=== PATIENT | male | born 1990 | race Caucasian/White ===

== ENCOUNTER 2020-12-10 09:11 | Outpatient (REF) | payer OTHER, SELFPAY ==
[2020-12-10 11:42] LABS: Alanine Aminotransferase 45 U/L (0-40); Albumin Level 4.5 g/dL (3.5-5.0); Alkaline Phosphatase 68 U/L (39-117); Anion Gap 10 (12-20); Aspartate Amino Transferase 24 U/L (5-37); Bilirubin Total 0.5 mg/dL (0.0-1.0); Blood Urea Nitrogen 17 mg/dL (9-16); Calcium 9.4 mg/dL (8.4-10.2); Carbon Dioxide 28 mmol/L (22-29); Chloride 104 mmol/L (96-108); Cholesterol 223 mg/dL; Estimated Glomerular Filt Rate > 60; Glucose Fasting 89 mg/dL (60-99); HDL Cholesterol 50 mg/dL; LDL Cholesterol Calculated 149 mg/dl; Potassium 4.2 mmol/L (3.3-5.1); Sodium 138 mmol/L (135-145); Total Protein 7.3 g/dL (6.5-8.0); Triglycerides 121 mg/dL
[2020-12-10 12:10] LABS: TSH reflex Free T4 1.03 uIU/mL (0.32-4.0)
== END 2020-12-10 09:12 | disposition home or self-care (01) ==
LOC: HO.WFDLDS 09:11
PROVIDERS: Visit Provider Family Medicine
DX: Z00.00 Encounter for general adult medical examination without abnormal findings (principal)
CPT/HCPCS: 36415; 80053; 80061; 84443

== ENCOUNTER 2021-07-18 16:14 | Outpatient (REF) | payer OTHER, SELFPAY | END 2021-07-18 16:15 | disposition home or self-care (01) | LOC: HO.LNP 16:14 | PROVIDERS: Visit Provider Physician Assistant | DX: Z20.822 Contact with and (suspected) exposure to COVID-19 (principal); B34.9 Viral infection, unspecified | CPT/HCPCS: U0003; U0005 ==

== ENCOUNTER 2021-12-13 10:11 | Emergency (ER) | payer OTHER, SELFPAY ==
--- NOTE | ~2021-12-13 | XR_ITS ---
EXAMINATION: XR KNEE, RIGHT CLINICAL INFORMATION: Pain after snowboarding incident COMPARISON: None TECHNIQUE: Four views of the right knee. FINDINGS: No fracture or dislocation. Small suprapatellar joint effusion. Joint spaces are well-maintained. No appreciable degenerative changes. No focal soft tissue swelling of the anterior knee. XR/XR knee RT 4V IMPRESSION: Small suprapatellar joint effusion without fracture.
[2021-12-13 10:22] VITALS: BP 169/50; PULSE 68; RESP 18; TEMP 36.8; O2SAT 99; BMI 20.3
--- NOTE | 2021-12-13 11:05 | ED.LOWEXIN ---
HPI - Extremity Injury (Lower) General Chief Complaint: Extremity Injury, Lower Stated Complaint: r knee inj Time Seen by Provider: 12/13/21 10:36 Source: patient Mode of arrival: ambulatory Limitations: no limitations History of Present Illness HPI Narrative: 31-year-old male presenting to the ED with complaints of right knee pain after he was snowboarding a few days ago and someone had fell in front of him and he tried to stop with his snowboard although his snowboard continued and his knee went inward per the patient and since then he has been having pain and limping. He denies head injury loss of consciousness or an actual fall are any other injuries complaints concerns at this time. complaint: knee injury Onset (ago): day(s) (Past few days worse today) Place: street/outdoors Severity: moderate Relieving factors: nothing Exacerbating factors: weight bearing, movement and palpation Context: other (While snowboarding) Associated symptoms: snap/pop sensation, swelling and able to partially bear weight Other symptoms: none Related Data Previous Rx's Medication Instructions Recorded acetaminophen 500 mg tablet 1,000 mg PO QID PRN #14 tab 12/13/21 (Tylenol Extra Strength) ibuprofen 800 mg tablet 800 mg PO Q8H PRN #14 tab 12/13/21 Allergies Allergy/AdvReac Type Severity Reaction Status Date / Time No Known Allergies Allergy Verified 06/15/21 14:23 [No Known Allergies*] almonds Allergy Intermediate throat Uncoded 12/19/20 13:07 swelling Review of Systems Review of Systems: Constitutional : No Weight loss, No Fever, No Chills, No Night Sweats, No Fatigue, No Malaise ENT/Mouth : No Hearing loss, No Ear Pain, No Nasal Congestion, No Sinus Pain, No Hoarseness, No sore throat, No Rhinorrhea, No Swallowing Difficulty Eyes: No Eye Pain, No Swelling, No Redness, No Foreign Body, No Discharge, No Vision Changes Cardiovascular : No Chest Pain, No SOB, No Dyspnea on Exertion, No Orthopnea, No Edema, No Palpitations Respiratory : No Cough, No Sputum, No Wheezing, No Smoke Exposure, No Dyspnea Gastrointestinal : No Nausea, No Vomiting, No Diarrhea, No Constipation, No abdominal Pain, No Hematochezia, No Melena Genitourinary : no irregular bleeding, No Dysuria, No Urinary Frequency, No Hematuria, No Urinary Incontinence, No Urgency, No Flank Pain, No Urinary Flow Changes, No Hesitancy Musculoskeletal : + joint pain, No Myalgias, No Joint Swelling Skin : No Skin Lesions, No rash Neuro : No Weakness, No Numbness, No Paresthesias, No Loss of Consciousness, No Dizziness, No Headache Psych : No Anxiety/Panic, No Depression, No SI/HI/AH/VH, No Social Issues, Heme/Lymph: No Bruising, No Bleeding,No Lymphadenopathy Endocrine : No Polyuria, No Polydipsia, No Temperature Intolerance Yes all other systems are reviewed and are negative [facility] Past Medical History Attestation statement: The following information was validated with the patient. Surgical History No pertinent past surgical history Family History Family History Father No problems noted. Mother No problems noted. Social History Social History Housing: Apartment Alcohol intake: never Patient Tobacco Use Status: Former Tobacco user e-Cigarette/Vaping Use: Currently Using Advance Directives: No Advance Directives Information Provided: No service: No Current occupational status: employed Current occupation: health care legal assistant Current occupational exposures/hazards: No Physical Exam Vital Signs: Vital Signs: Last Vital Signs Temp 98.2 F 12/13/21 10:22 Pulse 68 12/13/21 10:22 Resp 18 12/13/21 10:22 BP 169/50 H 12/13/21 10:22 Pulse Ox 99 12/13/21 10:22 BMI result Body Mass Index 20.3 vital signs have been reviewed as normal and appeared to be correct. Blood pressure 169/50. Heart rate normal. Respiration rate normal. Temperature normal. Oxygen saturation normal. Appearance: Alert. Oriented X3. No acute distress. Head: Normal external exam. Normocephalic. Atraumatic. No Grover signs noted. No raccoon eyes noted Eyes: PERRLA. EOMI. Conjunctiva and sclera normal. Eyelids normal. ENT: EAC normal. TM's Normal. No septal hematoma noted. No hemotympanum noted. Pharynx normal. Uvula midline. Moist mucous membranes. Normal voice. No trismus noted. No drooling noted. No muffled voice noted. Neck: Normal inspection. Neck supple. FROM. No adenopathy. Thyroid Normal. No tracheal deviation noted. No crepitus is noted. No meningeal signs. No neck mass noted. No signs of trauma noted. CVS: Normal heart rate and rhythm. Heart sound normal. Pulses normal throughout. No murmurs/rales/gallops. Respiratory: No respiratory distress. Painless inspiration. Breath sounds normal. No wheezes/rales/rhonchi noted. Chest nontender. No crepitus is noted. No signs of trauma noted. accessory muscle usage noted or decreased air movement noted. No signs of trauma. Abdomen: Soft and nontender. Bowel sounds normal in all 4 quadrants. No distention noted. No organomegaly noted. No visible injury noted. Back: Full range of motion noted. Nontender. No signs of trauma. Patient neuro intact bilaterally and distally on all 4 extremities. Patient's reflexes intact bilaterally and distally on all 4 extremities. No rashes/lesion/induration/fluctuance or signs of infection noted. Skin: Skin warm and dry. Normal skin color. Normal skin turgor. No rashes/lesions/lacerations noted. Extremities: Patient moderate tenderness palpation to the medial aspect of the right knee with mild soft tissue swelling. No obvious ligamentous or tendon injury noted. No obvious deformities are noted. Otherwise all other Extremities exhibit normal range of motion and nontender. No lower extremity edema. No calf tenderness is noted. Achilles tendon is intact. Neuro: Oriented X 3. No motor deficit. No sensory deficit. Reflexes normal. Normal steady gait. No focal neuro deficits noted. CN's II-XII intact bilaterally? Vascular: + radial pulses/+ 2 distal pedal pulses/+2 dorsalis pedis b/l. Normal cap refill. No cyanosis noted to upper extremity nails and lower extremity toes nails. Course Course Course Narrative: Patient status post twist injury. No actual fall. Presenting with right knee pain. On exam no obvious deformities and no obvious ligamentous or tendon injury. Achilles tendon is intact. X-ray negative for any fractures only revealed soft tissue swelling. Will place in a knee immobilizer and crutches and treat symptomatically instructed follow-up orthopedic for further evaluation and treatment for possible outpatient MRI in 2-3 weeks if symptoms persist if Orthopedic believe it is indicated and I explained this to the patient he understands and agrees with the plan along with instructions follow-up with PCP and to return if any new or worsening symptoms. MDM - Extremity Injury (Lower) Medical Records Attestation: I reviewed the patient's medical records. Imaging Data Right knee x-ray: Attestation: I personally reviewed and interpreted this imaging study as follows: Radiologist's impression: FINDINGS: No fracture or dislocation. Small suprapatellar joint effusion. Joint spaces are well-maintained. No appreciable degenerative changes. No focal soft tissue swelling of the anterior knee.? XR/XR knee RT 4V IMPRESSION: Small suprapatellar joint effusion without fracture. Procedures Orthopedic Splinting/Casting Injury #1: Side: right Lower Extremity Injury Location: knee Lower Extremity Immobilizer: knee immobilizer Other Orthopedic Equipment: crutches Discharge Plan Discharge Clinical Impression: Right knee sprain Patient Disposition: Home, Self-Care Instructions: Knee Sprain (DC), Crutch Instructions (ED), Knee Immobilizer (ED) Prescriptions: New ibuprofen 800 mg tablet 800 mg PO Q8H PRN (Reason: pain) Qty: 14 0RF acetaminophen [Tylenol Extra Strength] 500 mg tablet 1,000 mg PO QID PRN (Reason: fever or pain) Qty: 14 0RF Referrals: Rick Marroquin MD [Physician] - 1 week (If symptoms persist for longer than 1 week make a follow-up appointment in 1-3 weeks) Brad Edmonds MD [Primary Care Provider] - 2 days Stand Alone Forms: Work/School Release
[2021-12-13] MEDS: Ibuprofen 800 MG TABLET PO (11:16)
[2021-12-13 11:37] VITALS: RESP 17
== END 2021-12-13 11:38 | disposition home or self-care (01) ==
PROVIDERS: Emergency Provider Emergency Medicine; PCP Family Medicine
DX: S83.91XA Sprain of unspecified site of right knee, initial encounter (principal); M25.561 Pain in right knee; X50.1XXA Overexertion from prolonged static or awkward postures, initial encounter; Y93.9 Activity, unspecified; Y92.9 Unspecified place or not applicable; Y99.9 Unspecified external cause status; Z87.891 Personal history of nicotine dependence; Z79.899 Other long term (current) drug therapy
CPT/HCPCS: 29505; 73564; 99283

== ENCOUNTER 2021-12-29 07:40 | Outpatient (REF) | payer OTHER, SELFPAY ==
--- NOTE | ~2021-12-29 | XR_ITS ---
EXAMINATION: XR KNEE, RIGHT CLINICAL INFORMATION: Right knee pain COMPARISON: Right knee x-rays of 12/13/2021 TECHNIQUE: A single patellar view of the right knee is acquired as requested by referring provider. FINDINGS: Patellofemoral joint space is well preserved. Articular margins appear normal. No degenerative changes are noted. No evidence of dystrophic soft tissue calcifications or acute or significant abnormality of the visualized osseous structures. XR/XR knee RT 1V IMPRESSION: Unremarkable appearance of patellar view of the right knee.
== END 2021-12-29 07:41 | disposition home or self-care (01) ==
LOC: HO.HOSX 07:40
PROVIDERS: Visit Provider Physician Assistant
DX: S83.91XA Sprain of unspecified site of right knee, initial encounter (principal)
CPT/HCPCS: 73560; 99202

== ENCOUNTER → 2023-01-07 09:27 | Outpatient (BNVA) | payer OTHER, SELFPAY | PROVIDERS: PCP Family Medicine; Visit Provider Internal Medicine | DX: M25.812 Other specified joint disorders, left shoulder (principal) | CPT/HCPCS: 99203 ==

== ENCOUNTER 2023-02-14 10:00 | Outpatient (RCR) | payer OTHER, SELFPAY ==
--- NOTE | 2023-01-18 12:34 | MHC.PT.EP ---
[facility] [place] Office [place] Office [place] Office [address] [phone] F: [phone] F: [phone] F: [phone] F: [phone] Physical Therapy Plan of Care Date of Evaluation: Date of Surgery: Diagnosis: L RTC impingement. Assessment: Pt is a 32 y/o RHD male referred to PT for eval and treat of L shoulder RTC impingement resulting in decreased tolerance for lifting, pushing, and pulling objects of weight, placing objects on high shelves, reaching the back of his neck for hygiene and dressing as well as laying on his L side secondary to mechanism of injury of repeated stress, decreased L shoulder ROM and strength, moderate rounded shoulder posture, increased L shoulder tissue tension, ache at night and pain during the day with activity. Pt is deemed an appropriate candidate to receive skilled PT services to address their physical impairments in order to improve their functional ability. Frequency and Duration: The patient will be seen 2 x/ wk x 5 wks. Short Term Goals: Initiate home program. Improve L shoulder AROM abduction to at least 140 degrees; initial: 95 degrees. It Security Manager Goals: I with home program. Pt will be able to place objects on high shelves with managed Sx; initial: 8/10 pain/ difficulty. Pt will demonstrate relative symmetry or shoulder AROM. Improve R shoulder flexion MMT by at least 1/2 MMT grade; initial: 4/5. Improve SPADI questionnaire by at least 13 points in order to demonstrate improved function; initial: 90/130. Treatment Plan: Modalities to reduce pain, spasms and effusion. Manual therapy to restore motion and function. Therapeutic exercise to improve strength and flexibility. Neuromuscular re-education for posture and balance. Therapeutic activities to return to functional activities of daily living. Electronically signed by: Zackary Oden PT. Please sign and return to therapist. Thank you for your referral.
--- NOTE | 2023-02-17 08:39 | MHC.PT.DC ---
[facility] [place] Office [place] Office [place] Office [address] [phone] F: [phone] F: [phone] F: [phone] F: [phone] Physical Therapy Discharge Report Diagnosis: L RTC impingement. Date of Surgery: Date of Evaluation: 01/18/23 Date of Discharge: 02/17/23 Treatments to Date: 6 Cancellations to Date: No Shows to Date: Discharge Status: Achieved Goals Improved Function Independent with HEP Discharge Summary: 02/14: Pt has come up to his approved visits and reports though he has some pain with end range flexion and abd and has not returned to full duty he has skills to continue on his own to stabilize and strengthen his shoulder. demonstrates full AROM. Omar has been an active and motivated participant in his therapy in and out of the clinic and has progressed well; Pt in agreement with DC today as he has met his therapeutic goals, is I with his home program, and managed of his pain. SPADI outcome measure improved from 69% to 10%. Pt noted decrease pain at ER of abd after exs. Pt fatigued after PRE'sPt has full ROM. Pt has sl tenderness biceps tendon. Pt fatigued after exs no c/o pain. No adverse effects. no pain with activities. continue as jamie. Electronically signed by: Zackary Oden PT. Please sign and return to therapist. Thank you for your referral.
== END 2023-02-17 08:38 | disposition home or self-care (01) ==
LOC: HO.PTCHIC 10:00
PROVIDERS: Visit Provider Internal Medicine
DX: M25.812 Other specified joint disorders, left shoulder (principal)
CPT/HCPCS: 97110; 97161; 97530

== ENCOUNTER 2023-12-15 14:10 | Emergency (ER) | payer OTHER, SELFPAY ==
--- NOTE | ~2023-12-15 | XR_ITS ---
EXAMINATION: XR CHEST CLINICAL INFORMATION: Chest pain/difficulty breathing COMPARISON: None available. TECHNIQUE: 2 views of the chest were obtained. FINDINGS: No significant abnormality is noted involving the heart, lungs, mediastinum, bony thorax or soft tissues. XR/XR chest 2V IMPRESSION: Unremarkable chest examination.
--- NOTE | 2023-12-15 14:12 | ED_ITS ---
HPI - URI/Sore Throat General Chief Complaint: General Medical Stated Complaint: Diff breathing Related Data Previous Rx's Medication Instructions Recorded acetaminophen 500 mg tablet 1,000 mg (2 x 500 mg) PO QID PRN 12/13/21 (Tylenol Extra Strength) fever or pain #14 tabs ibuprofen 800 mg tablet 800 mg PO Q8H PRN pain #14 tabs 12/13/21 Allergies Allergy/AdvReac Type Severity Reaction Status Date / Time No Known Allergies Allergy Verified 12/15/23 14:13 [No Known Allergies*] almonds Allergy Intermediate throat Uncoded 12/15/23 14:13 swelling PMFSH Past Medical History Medical History (Updated 12/17/23 @ 09:40 by Deepali Chapman NP) Right knee sprain Surgical History No pertinent past surgical history Family History Family History Father No problems noted. Mother No problems noted. Social History Social History Housing: Apartment Alcohol intake: never Patient Tobacco Use Status: Former Tobacco user e-Cigarette/Vaping Use: Currently Using service: No Current occupational status: employed Current occupation: assistant store leader Current occupational exposures/hazards: No Physical Exam 2 Vital Signs: Vital Signs: Last Vital Signs Temp 100.0 F 12/15/23 14:13 Pulse 94 12/15/23 14:13 Resp 24 H 12/15/23 14:13 BP 117/79 12/15/23 14:13 Pulse Ox 98 12/15/23 14:13 O2 Del Method Room Air 12/15/23 14:13 BMI result Body Mass Index 20.3 Course Course Course Narrative: This is a rapid medical exam. deferred additional HPI, ROS, PE to primary provider. 33 yo male with no known medical history here with difficulty breathing and right sided chest pain with waking this morning. Had flu like symptoms a few days ago (vomiting/fatigue) which seems resolved. Feels like he cant take a whole breath. Will obtain labs, EKG, CXR, viral testing. Breath sounds bilaterally. VSS Medical Decision Making Lab Data 12/15/23 14:30 12/15/23 14:30 Labs: Lab Results 12/15/23 12/15/23 Range/Units 14:30 17:40 WBC 7.4 (4.8-10.8) X10*3/uL RBC 4.99 (4.60-5.80) X10*6/uL Hgb 15.5 (14.0-18.0) g/dl Hct 45.3 (42.0-52.0) % MCV 90.8 (80.0-98.0) fL MCH 31.1 (27.0-33.0) pg MCHC 34.2 (31.0-36.0) g/dl RDW 12.0 (11.0-16.0) % Plt Count 272 (160-400) X10*3/uL MPV 9.5 (9.4-12.4) fL Immature Gran % (Auto) 0.4 (0.0-0.4) % Neut % (Auto) 81.2 H (45-73) % Lymph % (Auto) 8.1 L (20-40) % [place] % (Auto) 7.7 (2-11) % Eos % (Auto) 2.2 (0-4) % Baso % (Auto) 0.4 (0-2) % Lymph # (Auto) 0.6 L (1.2-4.9) X10*3/uL [place] # (Auto) 0.6 (0.1-1.2) X10*3/uL Eos # (Auto) 0.2 (0.0-0.4) X10*3/uL Baso # (Auto) 0.0 (0.0-0.2) X10*3/uL Abs Immat Gran (auto) 0.03 (0.00-0.03) X10*3/uL Absolute Neuts (auto) 6.0 (2.0-8.3) x10*3/uL Absolute Nucleated RBC 0.000 (0.0-0.012) X10*3/uL Nucleated RBC % (auto) 0.0 (0.0-0.2) /100WBC PT 12.2 (11.1-13.3) SEC INR 1.0 (0.9-1.1) D-Dimer High Sensitivty < 150 NG/ML Sodium 136 (135-145) mmol/L Potassium 4.0 (3.3-5.1) mmol/L Chloride 101 (96-108) mmol/L Carbon Dioxide 26 (22-29) mmol/L Anion Gap 13 (12-20) BUN 11 (9-16) mg/dL Creatinine 0.77 (0.5-1.4) mg/dL Estim Creat Clear Calc 128.5 Estimated GFR > 60 Random Glucose 79 (60-115) mg/dL Calcium 9.6 (8.4-10.2) mg/dL Total Bilirubin 0.5 (0.0-1.0) mg/dL Direct Bilirubin 0.2 (0.0-0.5) mg/dL AST 15 (5-37) U/L ALT 22 (0-40) U/L Alkaline Phosphatase 62 (39-117) U/L Troponin I High Sens < 2.7 (<3.5-35.0) ng/L Total Protein 7.8 (6.5-8.0) g/dL Albumin 4.7 (3.5-5.0) g/dL Influenza Type A (PCR) NEGATIVE (Negative) Influenza Type B (PCR) NEGATIVE (Negative) RSV RNA Qual (PCR) NEGATIVE (Negative) SARS-CoV-2 RNA (RT-PCR) NEGATIVE (Negative) Discharge Plan Discharge Clinical Impression: Chest pain Patient Disposition: Left W/O Completing Treatment Prescriptions: No Action ibuprofen 800 mg tablet 800 mg PO Q8H PRN (Reason: pain) Qty: 14 0RF acetaminophen [Tylenol Extra Strength] 500 mg tablet 1,000 mg PO QID PRN (Reason: fever or pain) Qty: 14 0RF Discharge Date/Time: 12/15/23 18:08
[2023-12-15 14:13] VITALS: BP 117/79; PULSE 94; RESP 24; TEMP 37.8; O2SAT 98; BMI 20.3
--- NOTE | 2023-12-15 14:15 | ECG_ITS ---
Test Reason : cp Blood Pressure : / mmHG Vent. Rate : 085 BPM Atrial Rate : 085 BPM P-R Int : 144 ms QRS Dur : 088 ms QT Int : 348 ms P-R-T Axes : 053 063 046 degrees QTc Int : 414 ms Sinus rhythm with marked sinus arrhythmia Minimal voltage criteria for LVH, may be normal variant ( Sokolow-Hunt ) Borderline ECG When compared with ECG of 13-JAN-2014 12:05, No significant change was found Referred By: Deepali Chapman Electronically Signed By:CELIA PERKINS MD
[2023-12-15 14:41] LABS: MANUAL DIFF FLAG NO
[2023-12-15 14:45] LABS: Basophils Percent Auto 0.4 % (0-2); Eosinophils Absolute Auto 0.2 X10*3/uL (0.0-0.4); Eosinophils Percent Auto 2.2 % (0-4); Hematocrit 45.3 % (42.0-52.0); Hemoglobin 15.5 g/dl (14.0-18.0); Imm Gran Abs Auto 0.03 X10*3/uL (0.00-0.03); Imm Gran Pct Auto 0.4 % (0.0-0.4); Lymphocytes Absolute Auto 0.6 X10*3/uL (1.2-4.9); Lymphocytes Percent Auto 8.1 % (20-40); Mean Corpuscular HGB Conc 34.2 g/dl (31.0-36.0); Mean Corpuscular Hemoglobin 31.1 pg (27.0-33.0); Mean Corpuscular Volume 90.8 fL (80.0-98.0); Mean Platelet Volume 9.5 fL (9.4-12.4); Monocytes Absolute Auto 0.6 X10*3/uL (0.1-1.2); Monocytes Percent Auto 7.7 % (2-11); Neutrophils Percent Auto 81.2 % (45-73); Platelet Count 272 X10*3/uL (160-400); Red Blood Count 4.99 X10*6/uL (4.60-5.80); White Blood Count 7.4 X10*3/uL (4.8-10.8)
[2023-12-15 14:58] LABS: Alanine Aminotransferase 22 U/L (0-40); Albumin Level 4.7 g/dL (3.5-5.0); Alkaline Phosphatase 62 U/L (39-117); Anion Gap 13 (12-20); Aspartate Amino Transferase 15 U/L (5-37); Bilirubin Direct 0.2 mg/dL (0.0-0.5); Bilirubin Total 0.5 mg/dL (0.0-1.0); Blood Urea Nitrogen 11 mg/dL (9-16); Calcium 9.6 mg/dL (8.4-10.2); Carbon Dioxide 26 mmol/L (22-29); Chloride 101 mmol/L (96-108); Creatinine Clr Calc Pharmacy 128.5; Estimated Glomerular Filt Rate > 60; Glucose Random 79 mg/dL (60-115); Sodium 136 mmol/L (135-145); Total Protein 7.8 g/dL (6.5-8.0)
[2023-12-15 15:03] LABS: Troponin-I High Sensitivity < 2.7 ng/L (<3.5-35.0)
[2023-12-15 15:38] LABS: Influenza A PCR NEGATIVE (Negative); Influenza B PCR NEGATIVE (Negative); Resp Syncy Virus RNA Qual PCR NEGATIVE (Negative); SARS COV2 PCR INHOUSE NEGATIVE (Negative)
[2023-12-15 17:55] LABS: Prothrombin Time 12.2 SEC (11.1-13.3)
[2023-12-15 17:58] LABS: D Dimer High Sensitivity < 150 NG/ML
== END 2023-12-15 18:08 | disposition left against medical advice (07) ==
LOC: HO.ED 20:49
PROVIDERS: Nurse Practitioner Family; Emergency Provider Emergency Medicine; PCP Family Medicine
DX: R07.89 Other chest pain (principal); J02.9 Acute pharyngitis, unspecified; R06.02 Shortness of breath; Z20.822 Contact with and (suspected) exposure to COVID-19; Z20.828 Contact with and (suspected) exposure to other viral communicable diseases; Z79.899 Other long term (current) drug therapy
CPT/HCPCS: 0241U; 36415; 71046; 80048; 80076; 84484; 85025; 85379; 85610; 93005; 99283

== ENCOUNTER → 2023-12-15 14:15 | Outpatient (BNV) | payer OTHER, SELFPAY | PROVIDERS: PCP Family Medicine; Visit Provider Internal Medicine Cardiovascular Disease | DX: R07.9 Chest pain, unspecified (principal) | CPT/HCPCS: 93010 ==